=== PATIENT | male | born 1960 | race African-American/Black ===

== ENCOUNTER 2021-02-16 18:58 | Emergency (ER) | payer OTHER ==
[~2021-02-16] VITALS: Ht 177.8 cm; Wt 108.0 kg
[2021-02-16] MEDS ORDERED: LIDOCAINE 5% PATCH TOP SCH (20:00)
[2021-02-16] MEDS ORDERED: ACETAMINOPHEN 325MG TABLET PO ONE (20:00)
[2021-02-16 20:43] VITALS: BP 143/96
[2021-02-16] MEDS ORDERED: IBUP-2029 MT (20:51)
[2021-02-16] MEDS ORDERED: ACET-2708 MT (20:51)
[2021-02-16] MEDS ORDERED: LIDO700A15 TP (20:51)
[2021-02-16] MEDS ORDERED: BACL-141 MT (20:51)
== END 2021-02-16 21:09 | disposition home or self-care (01) ==
LOC: ER 18:58
DX: S13.4XXA Sprain of ligaments of cervical spine, initial encounter (principal); I10 Essential (primary) hypertension; Z13.9 Encounter for screening, unspecified; V49.9XXA Car occupant (driver) (passenger) injured in unspecified traffic accident, initial encounter; Y93.89 Activity, other specified; Y92.89 Other specified places as the place of occurrence of the external cause; Y99.8 Other external cause status
CPT/HCPCS: 73030; 99283